=== PATIENT | male | born 1975 | race Caucasian/White ===

== ENCOUNTER 2019-04-07 23:29 | Emergency (ER) | payer OTHER, SELFPAY ==
[2019-04-07 23:30] VITALS: BP 137/94; PULSE 121; RESP 18; TEMP 36.1; O2SAT 98; BMI 28.5
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
[2019-04-07] MEDS: Diphth,Pertuss(Acell),Tet Vac 0.5 ML Vial IM (23:51)
[2019-04-07] MEDS: Ibuprofen 600 MG Tablet PO (23:51)
[2019-04-08 00:28] VITALS: RESP 16
== END 2019-04-08 00:29 | disposition home or self-care (01) ==
LOC: ED 04-08 00:01
PROVIDERS: Emergency Provider Emergency Medicine; Family Provider Family Medicine; PCP Family Medicine
DX: S50.11XA Contusion of right forearm, initial encounter (principal); T22.011A Burn of unspecified degree of right forearm, initial encounter; X19.XXXA Contact with other heat and hot substances, initial encounter; Y93.9 Activity, unspecified; Y92.9 Unspecified place or not applicable; Z23 Encounter for immunization
CPT/HCPCS: 90471; 90715; 99282

== ENCOUNTER → 2020-11-01 09:36 | Outpatient (CLI) | payer OTHER, SELFPAY ==
[2020-11-01 09:57] LABS: Mean Corp Hgb Conc 33.3 g/dL (32-36); Mean Corpuscular Hgb 31.5 pg (27.0-32.0); Mean Corpuscular Volume 94.6 fL (80-94); Mean Platelet Vol. 11.2 fl (6.2-12.0); Platelet Count 163 K/mm3 (150-450); RBC Distribution Width CV 12.7 % (11.6-14.6); RBC Distribution Width SD 44.5 fl (35.1-43.9); Red Blood Count 4.44 M/mm3 (4.6-6.2)
[2020-11-01 10:38] LABS: Anion Gap 5 (5-15); BUN 15 mg/dL (7-18); Calcium,Total 8.8 mg/dL (8.5-10.1); Chloride 108 mmol/L (98-107); Creatinine, Serum 0.68 mg/dL (0.70-1.30); EST Glomerular Filtration Rate 133 mL/min (>60); Est Glom Filt Rate - Afr Amer 161 mL/min (>60); Glucose 84 mg/dL (74-106); Potassium 3.7 mmol/L (3.5-5.1); Sodium Level 141 mmol/L (136-145)
== END ==
LOC: LABSPEC 09:39 → LAB 09:39
PROVIDERS: PCP Family Medicine; Referring Provider Nurse Practitioner Adult Health; Visit Provider Nurse Practitioner Adult Health
DX: Z01.812 Encounter for preprocedural laboratory examination (principal); U07.1 COVID-19
CPT/HCPCS: 36415; 80048; 85027; 87635; C9803; U0005; U0003

== ENCOUNTER 2024-11-07 09:30 | Outpatient (RCR) | payer OTHER, SELFPAY ==
--- NOTE | 2024-10-11 10:56 | HP.PTEVAL ---
Patient's Visit Information Visit Information Visit Information: BRENTON DUMONT is a 48 year old M referred to Physical Therapy by Dr. Dewayne Reyes MD with a diagnosis of B knee OA. Date of Evaluation: 10/11/24 Physical Therapist: Esequiel Daly, PT, ATC Visit Plan Frequency: 2-3x /Week Duration: 4-6 Weeks Plan: B knee strengthening, B LE stretching, core stab ex's, nustep, and HEP Subjective Subjective: Pt reports he has had B knee pain for many years. Pt notes he was not able to stand up when he was 2 years old secondary to knee pain. 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 Pt reports he has had x-rays in the past which revealed OA, but notes he has been told he is too young to have surgery at this time. Pt reports he plans on getting a TKA in the future secondary to being bone on bone. Pty notes his R knee is more sore that his L knee. Pt denies any tingling or numbness in LE's at this time, but reports he gets R LE sciatica intermittently. Pt reports occasional sleep difficulty secondary to pain. Pt reports he lives in a 2 story home and has to negotiate stairs all the time which can be very difficult when his pain is bad. t reports his knees buckle and give out on his on occasion. 1/10 pain at rest, 9/10 pain at worst. Pain B Knee pain: Pain Intensity (Out of 10): 1 Pain Intensity Range: 9 Objective Objective: Neuro: B LE sensation is WNL to light touch. TU sec ROM: L knee 0-120 ; R knee 0-8-100 degrees MMT: L knee flex= 44, abd= 30; R knee flex= 30, ext= 32 #F Balance/Special Test Scores Lower Extremity Functional Score: 32 Goals Goal 1:: Decrease B knee pain x 50% to aid with sleep Goal Time Frame: 4-6 Weeks Goal 2:: Increase B knee strength x 10 #F to aid with stair negotiation Goal Time Frame: 4-6 Weeks Goal 3:: Increase B knee flex x 10-15 degrees to aid with work requirements Goal Time Frame: 4-6 Weeks Goal 4:: I with HEP Goal Time Frame: 4-6 Weeks Rehabilitation Potential Physical Therapy Diagnosis: Pt has B knee pain, weakness, and limited ROM secondary to B knee OA Rehabilitation Potential: Good Anticipated Interventions Patient/Client Instruction: Educate patient on: Condition and Plan of Care For the Purpose of:: To improve self management Therapeutic Exercise to Include: Strength training, Balance training, Flexibilty training, Active ROM and Dynamic Lumbar Stabilization For the Purpose of:: To decrease pain, To increase ROM and To improve muscle performance and motor function Cryotherapy (ice pack, ice massage): Yes For the Purpose of:: To decrease pain Text: Thank you for the opportunity to evaluate your patient. For Medicare and Medicare HMO plans, please review the plan of care and approve it. It will need to be FAXED BACK to us at [phone] for Medicare purposes. For Medicare only, by signing this I certify the plan of care. Please let me know if there are questions or concerns regarding this plan of care. Physician Signature: Date:
--- NOTE | 2024-11-07 09:54 | HP.PTDCSUM ---
Discharge Summary D/C summary: It has been my pleasure to treat BRENTON DUMONT referred by Dr. Dewayne Reyes MD, with the diagnosis of B knee OA for a total of 8 visit(s). Discharge Date: Please see the following information for a summary of their discharge status. Subjective Subjective: Pt reports he feels stronger and is taking advil less often. Pain B Knee pain: Pain Intensity (Out of 10): 2 Overall Improvement % Improvement: 10 Objective Objective/Function: B knee pain ranges from 2-8/10 MMT: R knee flex= 39, ext= 23; L knee flex= 56, ext= 37 #F ROM: L knee flex= 115, R knee flex= 105 degrees Pt has made minimal progress at this time. Goals Goal 1:: Decrease B knee pain x 50% to aid with sleep Goal Progress: Progressing Goal 2:: Increase B knee strength x 10 #F to aid with stair negotiation Goal Progress: Progressing Goal 3:: Increase B knee flex x 10-15 degrees to aid with work requirements Goal Progress: Progressing Goal 4:: I with HEP Goal Progress: Progressing Plan Plan: Discontinue PT, RTD D/C Information d/c sentence: If there are questions or concerns regarding this patient's physical therapy, please feel free to call me at [phone]. Thank you for the referral of this patient. Sincerely, Esequiel Daly, PT, ATC Balance/Gait/Functional tests Balance/Special Test Scores Lower Extremity Functional Score: 39 Improvement % Improvement: 10
== END 2024-11-07 10:34 | disposition home or self-care (01) ==
LOC: PT 09:30
PROVIDERS: PCP Student in an Organized Health Care Education/Training Program; Referring Provider Orthopaedic Surgery; Visit Provider Orthopaedic Surgery
DX: M17.0 Bilateral primary osteoarthritis of knee (principal)
CPT/HCPCS: 97110; 97161; 97530

== ENCOUNTER 2025-07-25 09:33 | Outpatient (RCR) | payer OTHER, SELFPAY ==
--- NOTE | 2025-07-25 10:17 | HP.PTEVAL_ITS ---
Patient's Visit Information Visit Information Visit Information: BRENTON DUMONT is a 49 year old M referred to Physical Therapy by Dr. Dewayne Reyes MD with a diagnosis of R kneee DJD. Date of Evaluation: 07/25/25 Physical Therapist: Scooter Tierney, DPT, OCS, CSCS Visit Plan Plan: shown SLR, knee rom and educated on walker ambulation and steps and post surgical process.ducated benefits of bike. no further skilld PT required prior to surgery. 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 Limping. 08/10 will have TKA. Exercises: none, stretches now and then have not helped. Sleep is interrupteed sometimes wakes him if he is on it alot. Walking too much hurts. 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 Will off for 2 months. Can't get down on hands and knees for floor jobs, squatting is hard. Hobbies: relaxing. 4 wheel riding. basic ADLs I. live in two story up stairs beedroom , steps with railing one. They hurt right now. Pain R knee: Pain Intensity (Out of 10): 3 Pain Intensity Range: 4 Comment: advil helps. Objective Objective: R knee AROM -2 to 105, PROM to 110 but painful. L knee 0-130. Tightness in HS and quad B. strength hips abd and ext 4-, flexion 4 B. knee 4+ ext and flexion with some R knee ext pain. Ankle 4+ B. sensation LE WNL to gross lgiht touch. walking and steps I rciprocally without AD, shown with walkeer today and for prep after surgery. Balance/Special Test Scores Lower Extremity Functional Score: 40 Rehabilitation Potential Physical Therapy Diagnosis: R knee stiffness and pain, having TKA and neding prep Anticipated Interventions Text: Thank you for the opportunity to evaluate your patient. For Medicare and Medicare HMO plans, please review the plan of care and approve it. It will need to be FAXED BACK to us at [phone] for Medicare purposes. For Medicare only, by signing this I certify the plan of care. Please let me know if there are questions or concerns regarding this plan of care. Physician Signature: Date:
== END 2025-07-25 19:00 | disposition home or self-care (01) ==
LOC: PT 09:33
PROVIDERS: PCP Student in an Organized Health Care Education/Training Program; Referring Provider Orthopaedic Surgery; Visit Provider Orthopaedic Surgery
DX: M17.11 Unilateral primary osteoarthritis, right knee (principal)
CPT/HCPCS: 97110; 97161